=== PATIENT | male | born 1985 | race African-American/Black ===

== ENCOUNTER 2017-01-06 10:27 | Emergency (ER) | payer SELFPAY ==
[2017-01-06 11:04] LABS: BASOPHILS 0.2 % (0.0-2.0); EOSINOPHILS 0.2 % (0-7); HEMATOCRIT 43.2 % (42.0-54.0); HEMOGLOBIN 14.7 g/dL (13.5-17.5); IMMATURE GRANULOCYTES 0.2 % (0-5); LYMPHOCYTES 33.5 % (15-50); MCH 31.3 pg (26.0-34.0); MCV 92.1 fL (80.0-100.0); MEAN PLATELET VOLUME 8.3 fL (7.4-10.4); MONOCYTES 9.4 % (2-11); NEUTROPHILS 56.5 % (40-80); RBC 4.69 10x6/uL (4.20-6.10); RDW 13.1 % (11.5-14.5); WBC 4.1 10x3/uL (4.8-10.8)
[2017-01-06 11:14] LABS: PLATELET COUNT 289 10x3/uL (130-400)
[2017-01-06 11:22] LABS: APTT 30.6 SECONDS (22.8-39.4); INR 1.01 (0.85-1.17); PROTIME 13.1 SECONDS (11.6-15.0)
[2017-01-06 11:27] LABS: ALBUMIN 3.9 g/dL (3.4-5.0); ALKALINE PHOSPHATASE 78 U/L (46-116); ALT (SGPT) 32 U/L (10-68); AMYLASE - SERUM 81 U/L (25-115); BILIRUBIN - TOTAL 0.23 mg/dL (0.2-1.3); CALC OSMOLALITY 280 mosm/kg (275-300); CALCIUM 9.6 mg/dL (8.5-10.1); CARBON DIOXIDE 29.8 mmol/L (21.0-32.0); CHLORIDE - SERUM 103 mmol/L (98-107); CREATININE - SERUM 0.8 mg/dL (0.6-1.3); GLUCOSE 94 mg/dL (74-106); LIPASE 113 U/L (73-393); POTASSIUM - SERUM 3.3 mmol/L (3.5-5.1); SODIUM 142 mmol/L (136-145); UREA NITROGEN 8 mg/dL (7-18); eGFR NON AFRICAN AMERICAN > 90 mL/min (90-120)
[2017-01-06 11:47] LABS: APPEARANCE HAZY (CLEAR); BILIRUBIN NEGATIVE (NEGATIVE); COLOR YELLOW (YELLOW); GLUCOSE NEGATIVE (NEGATIVE); KETONE NEGATIVE (NEGATIVE); LEUKOCYTE ESTERASE NEGATIVE (NEGATIVE); NITRITE NEGATIVE (NEGATIVE); PROTEIN NEGATIVE (NEGATIVE); UROBILINOGEN NORMAL (NORMAL)
[2017-01-06 11:56] LABS: UDS - AMPHET NEGATIVE QUAL (NEGATIVE); UDS - BARB NEGATIVE QUAL (NEGATIVE); UDS - BENZO NEGATIVE QUAL (NEGATIVE); UDS - COCAINE NEGATIVE QUAL (NEGATIVE); UDS - METH NEGATIVE QUAL (NEGATIVE); UDS - OPIATE NEGATIVE QUAL (NEGATIVE); UDS - PCP NEGATIVE QUAL (NEGATIVE); UDS - THC POSITIVE QUAL (NEGATIVE)
== END 2017-01-06 12:47 | disposition home or self-care (01) ==
LOC: D.ER 10:27
PROVIDERS: Emergency Medicine; Nurse Practitioner Family
DX: R10.9 Unspecified abdominal pain (principal); R19.7 Diarrhea, unspecified; F10.10 Alcohol abuse, uncomplicated; F12.10 Cannabis abuse, uncomplicated; F17.200 Nicotine dependence, unspecified, uncomplicated

== ENCOUNTER 2018-01-20 10:42 | Emergency (ER) | payer SELFPAY ==
[2018-01-24 09:19] LABS: CHLAMYDIA TRACHOMATIS, NAA Negative (Negative)
== END 2018-01-20 11:55 | disposition home or self-care (01) ==
LOC: D.ER 10:42
PROVIDERS: Physician Assistant
DX: N34.2 Other urethritis (principal); R30.0 Dysuria; F17.200 Nicotine dependence, unspecified, uncomplicated

== ENCOUNTER 2018-06-03 12:09 | Emergency (ER) | payer MEDICAID ==
[~2018-06-03] VITALS: Ht 172.7 cm; Wt 59.1 kg
[2018-06-03 12:23] VITALS: Ht 172.7 cm; Wt 59.1 kg
[2018-06-03 12:59] LABS: BASOPHILS 0.7 % (0-2); EOSINOPHILS 0.5 % (0-7); HEMATOCRIT 43.3 % (42.0-54.0); HEMOGLOBIN 15.3 g/dL (13.5-17.5); LYMPHOCYTES 34.3 % (15-50); MCH 31.8 pg (26.0-34.0); MCHC 35.3 g/dL (31.0-37.0); MEAN PLATELET VOLUME 8.6 fL (7.4-10.4); MONOCYTES 8.3 % (2-11); NEUTROPHILS 56.2 % (40-80); PLATELET COUNT 249 10x3/uL (130-400); RBC 4.81 10x6/uL (4.20-6.10); RDW 12.7 % (11.5-14.5); WBC 4.2 10x3/uL (4.8-10.8)
[2018-06-03 13:02] LABS: APPEARANCE CLEAR (CLEAR); BILIRUBIN NEGATIVE (NEGATIVE); COLOR YELLOW (YELLOW); GLUCOSE NEGATIVE (NEGATIVE); KETONE MODERATE mg/dL (NEGATIVE); NITRITE NEGATIVE (NEGATIVE); PROTEIN NEGATIVE (NEGATIVE); UROBILINOGEN NORMAL (NORMAL)
[2018-06-03 13:19] LABS: ALBUMIN 4.2 g/dL (3.4-5.0); ALKALINE PHOSPHATASE 75 U/L (46-116); ALT (SGPT) 26 U/L (10-68); CALC OSMOLALITY 265 mosm/kg (275-300); CALCIUM 8.9 mg/dL (8.5-10.1); CARBON DIOXIDE 29.7 mmol/L (21.0-32.0); CHLORIDE - SERUM 96 mmol/L (98-107); GLUCOSE 118 mg/dL (74-106); POTASSIUM - SERUM 3.8 mmol/L (3.5-5.1); PROTEIN - SERUM 8.2 g/dL (6.4-8.2); SODIUM 132 mmol/L (136-145); UREA NITROGEN 12 mg/dL (7-18); eGFR NON AFRICAN AMERICAN 90 mL/min (90-120)
[2018-06-03] MEDS ORDERED: VIBRAMYCIN 100100 MG PO (14:00)
[2018-06-03] MEDS ORDERED: ZOFRAN ODT4 MG/UDTAB PO (14:00)
[2018-06-03 14:47] VITALS: BP 121/71
[2018-06-06 08:21] LABS: CHLAMYDIA TRACHOMATIS, NAA Negative (Negative)
== END 2018-06-03 14:48 | disposition home or self-care (01) ==
LOC: D.ER 12:09
PROVIDERS: Emergency Medicine
DX: Z20.2 Contact with and (suspected) exposure to infections with a predominantly sexual mode of transmission (principal); R30.0 Dysuria; R11.2 Nausea with vomiting, unspecified; R36.9 Urethral discharge, unspecified; F17.200 Nicotine dependence, unspecified, uncomplicated

== ENCOUNTER 2019-03-09 12:02 | Emergency (ER) | payer MEDICAID ==
[~2019-03-09] VITALS: Ht 172.7 cm; Wt 60.0 kg
[~2019-03-09 12:02] MED LIST: VIBRAMYCIN 100100 MG PO; ZOFRAN ODT4 MG/UDTAB PO
[2019-03-09 12:14] VITALS: Ht 172.7 cm; Wt 60.0 kg
[2019-03-09 13:34] VITALS: BP 118/74
== END 2019-03-09 13:35 | disposition home or self-care (01) ==
LOC: D.ER 12:02
DX: Z20.2 Contact with and (suspected) exposure to infections with a predominantly sexual mode of transmission (principal)

== ENCOUNTER 2021-01-13 12:25 | Emergency (ER) | payer MEDICAID ==
[~2021-01-13] VITALS: Ht 172.7 cm; Wt 60.0 kg
[2021-01-13 12:40] VITALS: BP 120/75; Ht 172.7 cm; Wt 60.0 kg
[2021-01-13 13:14] LABS: BILIRUBIN NEGATIVE (NEGATIVE); KETONE NEGATIVE (NEGATIVE); NITRITE NEGATIVE (NEGATIVE)
== END 2021-01-13 13:53 | disposition home or self-care (01) ==
LOC: D.ER 12:25
PROVIDERS: Family Medicine
DX: Z20.2 Contact with and (suspected) exposure to infections with a predominantly sexual mode of transmission (principal)